=== PATIENT | male | born 1980 | race Two or more races ===

== ENCOUNTER 2021-01-07 13:15 | Emergency (ER) | payer MEDICAID ==
[~2021-01-07] VITALS: Ht 180.3 cm; Wt 133.8 kg
[2021-01-07] MEDS ORDERED: IV NORMAL SALINE 1000 ML BAG IV ONE (13:45)
[2021-01-07] MEDS ORDERED: MORPHINE SULFATE 2 MG/1 ML DISP.SYRIN IV ONE (13:45)
[2021-01-07] MEDS ORDERED: ONDANSETRON 4 MG/2 ML VIAL IV ONE (13:45)
--- NOTE | 2021-01-07 14:21 | NUR ---
PT WAS EVALUATED BY DR GUAJARDO. PT ELOPED FROM ER ROOM AFTER HIS CONVERSATION WITH DR GUAJARDO. DR CEDEÑO NOTIFIED.
== END 2021-01-07 14:25 | disposition left against medical advice (07) ==
LOC: ER 13:15
DX: R10.9 Unspecified abdominal pain (principal); R00.0 Tachycardia, unspecified; Z86.16 Personal history of COVID-19; Z87.19 Personal history of other diseases of the digestive system; R94.31 Abnormal electrocardiogram [ECG] [EKG]
CPT/HCPCS: 93005; A4663; J7030